=== PATIENT | male | born 1940 | race Caucasian/White ===

== ENCOUNTER 2018-04-13 15:22 | Outpatient (CLI) | payer MEDICARE, BC ==
--- NOTE | 2018-04-13 16:41 | RAD ---
TWO VIEWS LUMBAR SPINE: 04/13/18 HISTORY: Pain. FINDINGS: AP and lateral view of the lumbar spine with weightbearing views is submitted for interpretation. The re are five lumbar type vertebral bodies. Moderate degenerative disc disease at L4-L5 and L5-S1. Vert ebral body height is maintained. No acute fracture. Atherosclerosis of the aorta is identified. IMPRESSION: Degenerative changes involving the lower lumbar spine. POS: KALEB
--- NOTE | 2018-04-13 16:58 | RAD ---
SI JOINTS: 04/13/18 HISTORY: 77-year-old male with history of pain, right greater than left. There are arthrosis and degenerative changes of both SI joints with some sclerosis inferiorly. There is some minimal narrowing of both SI joints. Appearance is stable from 05/28/13 KUB study, however. No acute fracture or dislocation. 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 POS: Dany
== END 2018-04-13 15:23 | disposition home or self-care (01) ==
LOC: BICRAD 15:22
PROVIDERS: ATTEND Internal Medicine
DX: M54.5 Low back pain (principal); M19.90 Unspecified osteoarthritis, unspecified site; M47.898 Other spondylosis, sacral and sacrococcygeal region; M46.1 Sacroiliitis, not elsewhere classified; M47.896 Other spondylosis, lumbar region; M48.08 Spinal stenosis, sacral and sacrococcygeal region
CPT/HCPCS: 72100; 72202